=== PATIENT | male | born 1995 | race Hispanic/Latino ===

== ENCOUNTER 2024-10-18 18:01 | Emergency (ER) | payer BC, SELFPAY ==
--- NOTE | ~2024-10-18 | CT_ITS ---
CT lumbar spine wo con Ordering provider: Claudia Cabrera PA-C History: 28 years Male with . low back pain radiating down right leg . Comparison: None. Technique: CT lumbar spine without contrast. Automated exposure control and iterative reconstruction technique were employed. The dose-length product was 514.01 mGy-cm. FINDINGS: VERTEBRAE: Normal height and alignment. No subluxation or visible acute fracture. Bony fragment betwe en the spinous process is seen in T12. DISC SPACES: Well maintained. T12-L1: No stenosis. L1-L2: No stenosis. L2-L3: No stenosis. L3-L4: No stenosis. L4-L5: No stenosis. Mild diffuse disc bulge. L5-S1: No stenosis. Disc bulge with narrowing of the right foramen and with nerve root compression. PARASPINOUS SOFT TISSUES: Mild atheromatous disease of the abdominal aorta. IMPRESSION: No acute osseous abnormalities. Diffuse disc bulge with a right posterolateral protrusion at the level of L5-S1 with narrowing of the right foramen and nerve root compression Reviewed, dictated and finalized at location A.
--- NOTE | 2024-10-18 18:40 | ED.BACK ---
HPI - Back Pain/Injury General Chief Complaint: Back Pain/Injury Stated Complaint: back pain Time Seen by Provider: 10/18/24 18:10 Source: patient Mode of arrival: ambulatory Limitations: no limitations History of Present Illness HPI Narrative: This is a 28-year-old male that presents to the emergency department for lower back pain. Reports more on the right side. Radiation down the leg. No recent injuries or trauma. Ongoing over the last couple of days. Denies numbness or weakness. Related Data Allergies Allergy/AdvReac Type Severity Reaction Status Date / Time No Known Allergies Allergy Verified 10/18/24 18:46 Review of Systems Review of Systems: CONSTITUTIONAL: Denies fever MUSCULOSKELETAL: Reports back pain, joint pain, and myalgia. NEUROLOGIC: Denies numbness, or weakness. All systems reviewed & are unremarkable except as noted in HPI and below PMFSH Past Medical History Medical History (Updated 10/18/24 @ 23:00 by Claudia Cabrera PA-C) No active medical problems Social History Social History (Updated 10/18/24 @ 18:42 by Claudia Cabrera PA-C) Smoking status: Never smoker Exam Narrative: GENERAL: Well-appearing, well-nourished, and in no acute distress. HEAD: Normocephalic, atraumatic. EYES: EOMI. CHEST: Clear to auscultation. No respiratory distress. No wheezes rales or rhonchi HEART: Regular rate and rhythm. No murmur heard. Normal peripheral pulses. EXTREMITIES: Normal range of motion. No edema. Strength equal in bilateral lower extremities (5/5). Normal DP pulses SKIN: Warm, dry, no rash. NEURO: No focal deficits. Alert and oriented x3. PSYCH: Normal mood and affect Course Course Emergency Course: Patient updated on his workup and agrees with plan of care Vital Signs Vital signs: Vital Signs Temperature 97.4 F L 10/18/24 18:56 Pulse Rate 103 H 10/18/24 18:56 Respiratory Rate 20 10/18/24 18:56 Blood Pressure 127/91 H 10/18/24 18:56 Pulse Oximetry 97 10/18/24 18:56 Temperature 97.4 F L 10/18/24 18:56 Pulse Rate 103 H 10/18/24 18:56 Respiratory Rate 20 10/18/24 18:56 Blood Pressure 127/91 H 10/18/24 18:56 Pulse Oximetry 97 10/18/24 18:56 MDM - Back Pain/Injury MDM Narrative Medical decision making narrative: Patient presents the emergency department for right-sided low back pain. Patient is neurologically intact. Denies any saddle anesthesia, bowel/bladder incontinence. CT lumbar spine shows disc bulge at L5/S1, likely contributing to patient's symptoms. Patient instructed on [id number] medications, muscle relaxers, will be started on steroid taper. He will be given follow-up with Neurosurgery. He was given warnings to return to the ER Differential Diagnosis Differential diagnosis: Likely lumbar radiculopathy, sciatica and strain of lumbar region Imaging Data Radiologist's impression: ITS Impressions Lumbar Spine CT 10/18/24 22:31 IMPRESSION: No acute osseous abnormalities. Diffuse disc bulge with a right posterolateral protrusion at the level of L5-S1 with narrowing of the right foramen and nerve root compression Critical Care Time Critical Care Time Critical Care Time: No Discharge Plan Discharge Clinical Impression: Lumbar radiculopathy Patient Disposition: Home Condition: Stable Instructions: Lumbar Radiculopathy (ED) Additional Instructions: Return to the ER if you experience weakness, numbness, bowel/bladder incontinence, or any other symptoms that are concerning to you Rest, use ice/heat, take anti-inflammatories (Aleve, Ibuprofen, Naproxen, etc) or Tylenol as needed for pain as well as muscle relaxer (Flexeril) as needed for pain. Muscle relaxers can make you drowsy, do not drive if you take this. Take steroid taper as prescribed. Lidocaine patch to the area of pain as needed Follow up with neurosurgery Patient Language: Malay Prescriptions: New methylprednisolone 4 mg tablets,dose pack See Rx Instructions .ROUTE .COMPLEX Qty: 21 0RF Rx Instructions: orally per package directions cyclobenzaprine 10 mg tablet 10 mg PO TID PRN (Reason: muscle spasm) Qty: 14 0RF lidocaine 5 % adhesive patch,medicated 1 patch topical DAILY Qty: 15 0RF Rx Instructions: leave on most painful area for up to 12 hrs Follow-up/Referrals: Jacque Nair MD [Physician] - PHYSICIAN,CERTIFIED NURSE [Primary Care Provider] -
[2024-10-18] MEDS: ACETAMINOPHEN 500 MG TABLET 1000 MG PO (18:47)
[2024-10-18] MEDS: Please add drug allergy info to patient profile. 1 EACH XX (18:48)
[2024-10-18] MEDS: KETOROLAC 30 MG/ML VIAL (*BKC) IM (18:48)
[2024-10-18 18:56] VITALS: BP 127/91; PULSE 103; RESP 20; TEMP 36.3; O2SAT 97
[2024-10-18] MEDS: diazePAM INJ (*CRX) 10 MG/2 ML SYRINGE 5 MG IM (21:03)
[2024-10-18 23:28] VITALS: BP 130/90; PULSE 86; RESP 16; TEMP 36.5; O2SAT 97
== END 2024-10-18 23:29 | disposition home or self-care (01) ==
PROVIDERS: Emergency Provider Physician Assistant
DX: M54.16 Radiculopathy, lumbar region (principal); M51.379 Other intervertebral disc degeneration, lumbosacral region without mention of lumbar back pain or lower extremity pain; M48.07 Spinal stenosis, lumbosacral region
CPT/HCPCS: 72131; 96372; 99284; A9270; J1885; J3360